=== PATIENT | female | born 1970 | race Hispanic/Latino ===

== ENCOUNTER 2024-11-18 10:41 | Day surgery (SDC) | payer OTHER ==
[~2024-11-18] VITALS: Ht 188 cm; Wt 117.0 kg
[2024-11-18] VITALS (10 sets, daily range): BP systolic 118–135; BP diastolic 72–91; PULSE 71–88; RESP 14–18; TEMP 97.1–97.4
[2024-11-18] MEDS: 0.9%NACL 1000ML 1,000 ML IV ONE (11:52)
[2024-11-18] MEDS ORDERED: GLYCOPYRROLATE 0.2 MG/ML 5 ML VIAL ONE (12:27)
[2024-11-18] MEDS ORDERED: LIDOCAINE PF 100MG/5ML (2%) SYRINGE 5ML ONE (12:27)
== END 2024-11-18 13:52 | disposition home or self-care (01) ==
LOC: ENDO 10:41 → DAH 10:41 → ENDO 13:52
PROVIDERS: ATTEND Internal Medicine Gastroenterology
DX: K21.00 Gastro-esophageal reflux disease with esophagitis, without bleeding (principal); K29.50 Unspecified chronic gastritis without bleeding; G43.909 Migraine, unspecified, not intractable, without status migrainosus; E78.5 Hyperlipidemia, unspecified; Z80.0 Family history of malignant neoplasm of digestive organs; Z90.49 Acquired absence of other specified parts of digestive tract; Z79.899 Other long term (current) drug therapy
CPT/HCPCS: 88305; 88312; 43239; J7030; J2003; J2704 ×2; J3490; A4620; A4215; A4223; A7002; A4222; A4221; A4663; A4606